=== PATIENT | male | born 2000 | race African-American/Black ===

== ENCOUNTER 2023-03-05 08:19 | Outpatient (OUT) | payer BC, SELFPAY ==
--- NOTE | 2023-03-05 08:33 | XR_ITS ---
The [address] [address] Patient Name: RUBIN SHELDON MRN: [id number] date: 2000 Sex: M Assigned Patient Location: RAD Current Patient Location: [facility] Accession/Order Number: [id number] Exam Date: 03/05/2023 08:40 Report Date: 03/05/2023 09:52 At the request of: BRITTANI KELLER Procedure: XR ankle JOSH min 3V EXAMINATION: XR ankle JOSH min 3V HISTORY: Bilateral Ankle Pain COMPARISON: No relevant comparison available. FINDINGS: RIGHT FINDINGS: BONES: No significant arthropathy or acute abnormality. SOFT TISSUES: No visible soft tissue swelling. OTHER: Negative. LEFT FINDINGS: BONES: No significant arthropathy or acute abnormality. SOFT TISSUES: No visible soft tissue swelling. OTHER: Negative. XR/XR ankle JOSH min 3V IMPRESSION: RIGHT CONCLUSION: Normal examination. LEFT CONCLUSION: Normal examination. Electronically authenticated by: BRITTANI CRAWFORD Date: 03/05/2023 09:52
== END 2023-03-05 08:20 | disposition home or self-care (01) ==
PROVIDERS: Visit Provider Orthopaedic Surgery
DX: M25.572 Pain in left ankle and joints of left foot (principal)
CPT/HCPCS: 73610